=== PATIENT | female | born 1940 | race Caucasian/White ===

== ENCOUNTER 2018-11-20 18:40 | Emergency (ER) | payer MEDICAID ==
[~2018-11-20] VITALS: Ht 152.4 cm; Wt 54.7 kg
[~2018-11-20 18:40] MED LIST: ACET325T33 PO; CEPH-443 PO; CYCL10TA7 PO
[2018-11-20 19:12] VITALS: Ht 152.4 cm; Wt 54.7 kg
[2018-11-20] MEDS ORDERED: KETOROLAC 30 MG INJ IM STA (20:03)
--- NOTE | 2018-11-20 20:27 | ERD ---
ER Documentation Chief Complaint Chief Complaint LOWER BACK PAIN X 5 DAYS. HPI 78-year-old female presents to ED for lower back pain x5 days. Patient denies any traumatic injury. Patient states that she has had this pain in the past which was 2 years ago. Patient denies any fever chills night sweats. Patient states she does have a little bit difficulty urinating. Patient's vitals are within stable limits. ROS All systems reviewed and are negative except as per history of present illness. Medications Home Meds Active Scripts Cyclobenzaprine Hcl* (Cyclobenzaprine Hcl*) 10 Mg Tablet, 10 MG PO TID, #15 TAB Prov:GILL TURCIOS PA-C 11/20/18 Acetaminophen* (Tylenol*) 325 Mg Tablet, 2 TAB PO Q6 PRN for PAIN AND OR ELEVATED TEMP, #20 TAB Prov:GILL TURCIOS PA-C 11/20/18 Cephalexin* (Keflex*) 500 Mg Capsule, 500 MG PO BID for 7 Days, CAP Prov:GILL TURCIOS PA-C 11/20/18 Allergies Allergies: Coded Allergies: No Known Allergy (Unverified , 11/20/18) PMhx/Soc Medical and Surgical Hx: pt denies Surgical Hx Hx Neurological Disorder: Yes (BLE NEUROPATHY) Hx Alcohol Use: Yes (socially) Hx Substance Use: No Hx Tobacco Use: No Smoking Status: Never smoker FmHx Family History: No diabetes, No coronary disease, No other Physical Exam Vitals Vital Signs Date Temp Pulse Resp B/P (MAP) Pulse Ox O2 O2 Flow FiO2 Time Delivery Rate 11/20/18 98.5 75 18 134/60 97 19:12 (84) Physical Exam GENERAL: Moderate distress CHEST: Clear to auscultation bilaterally. There are no rales, wheezes or rhonchi. HEART: Regular rate and rhythm. No murmurs, clicks, rubs or gallops. ABDOMEN:Soft, nontender and nondistended. Good bowel sounds. No rebound or guarding. No gross peritonitis. No gross organomegaly or masses. No Houston sign or McBurney point tenderness. BACK: Tenderness to palpation left SI joint. Straight leg raise does not provoke sciatica symptoms EXTREMITIES: Equal pulses bilaterally. There is no peripheral clubbing, cyanosis or edema. No focal swelling or erythema. Full range of motion. Grossly neurovascularly intact. NEUROLOGIC: Alert and oriented. Cranial nerves II through VII intact. Motor strength in all 4 extremities with 5 out of 5 strength. Sensation grossly intact. Normal speech and gait. SKIN: There is no apparent rash or petechiae. The skin is warm and dry. There are no puncture wounds or track fernandes Results 24 hrs Laboratory Tests Test 11/20/18 20:20 Urine Color PAUL Urine Clarity CLEAR Urine pH 6.0 Urine Specific [place] 1.012 Urine Ketones NEGATIVE mg/dL Urine Nitrite POSITIVE mg/dL Urine Bilirubin NEGATIVE mg/dL Urine Urobilinogen 1+ mg/dL Urine Leukocyte Esterase NEGATIVE Michael/ul Urine Microscopic RBC 0 /HPF Urine Microscopic WBC 1 /HPF Urine Hemoglobin NEGATIVE mg/dL Urine Glucose NEGATIVE mg/dL Urine Total Protein NEGATIVE mg/dl Current Medications Medications Dose Sig/Candice Start Time Status Last (Trade) Ordered Route PRN Stop Time Admin Dose Reason Admin Ketorolac 30 mg ONCE STAT 11/20/18 DC 11/20/18 Tromethamine IM 20:03 11/20/18 20:13 (Toradol) 20:06 10 mg ONCE ONCE 11/20/18 DC 11/20/18 Cyclobenzapri PO 20:30 11/20/18 20:13 ne HCl 20:31 (Flexeril) Procedures/MDM ED course: The patient was stable throughout the ED course. The patient and/or family informed of laboratory and diagnostic imaging results throughout the ED course. Medications given in ER: Cyclobenzaprine Toradol Patient tolerated medication well with no adverse reactions. Patient reported improvement in pain. Medical decision makin-year-old female presented to ED for back pain x5 days. Patient is afebrile and denies any symptoms of urine retention or any traumatic injury. Patient has good range of motion straight leg raise does not provoke symptoms of sciatica. Palpation to the lower lumbar region revealed small muscle spasm left paraspinal muscles. Patient was given a Toradol injection and cyclobenzaprine while in the ED. Upon reevaluation the patient appears to be doing much better. Patient's UA indicated the patient has a UTI. The patient will be treated outpatient with Keflex and cyclobenzaprine and acetaminophen. At this time I have low suspicion for cauda equina syndrome or pyelonephritis. Patient denies any allergies to medications. The patient will follow up with her primary care provider in 1 to 2 days. Advised the patient that if symptoms worsen return to ER immediately. Patient is agreement treatment plan all questions were answered upon discharge. Prescription for home: Cyclobenzaprine Acetaminophen Keflex I have discussed with the patient proper use and common side effects to expert with the medication . I advised the patient/family to speak with the pharmacist dispensing the medication to be advised of any potential drug interactions with other medication or supplements they may be taking. Discharge: At this time, patient is stable for discharge and outpatient management. I have instructed the patient to follow-up with his\her primary care physician in 1 to 2 days. I have discussed with the patient the possibility of needing to see a specialist for further work-up and imaging studies if symptoms persist. I have instructed the patient to promptly return to the ER for any new or worsening symptoms including increased pain, fever, nausea, vomiting, weakness or LOC. The patient and\or family expressed understanding of and agreement with this plan. All questions were answered. Home care instructions were provided. Disclaimer: Inadvertent spelling and grammatical errors are likely due to EHR\dictation software use and do not reflect on the overall quality of patient care. Also, please note that the electronic time recorded on the note does not necessarily reflect the actual time of the patient encounter. Departure Diagnosis: Primary Impression: Back pain Back pain location: low back pain Chronicity: acute Back pain laterality: left Sciatica presence: without sciatica Qualified Codes: M54.5 - Low back pain Additional Impression: UTI (urinary tract infection) Urinary tract infection type: site unspecified Hematuria presence: without hematuria Qualified Codes: N39.0 - Urinary tract infection, site not specified Condition: GILL Velazquez PA-C Nov 20, 2018 20:27
[2018-11-20] MEDS ORDERED: CYCLOBENZAPRINE 10 MG TAB PO ONE (20:30)
[2018-11-20 20:59] VITALS: BP 152/70; PULSE 59; RESP 18
== END 2018-11-20 21:00 | disposition home or self-care (01) ==
LOC: FTE 18:40
DX: M54.5 Low back pain (principal); N39.0 Urinary tract infection, site not specified
CPT/HCPCS: 81001; 96372; J1885; Z7502; Z7610